=== PATIENT | female | born 1950 ===

== ENCOUNTER 2025-09-19 05:30 | Day surgery (SDC) | payer OTHER ==
[~2025-09-19 05:30] MED LIST: LEVOTHYROXINE25 MCG; ROSUVASTATIN CA20 MG; VALSARTAN80 MG
[2025-09-19] MEDS ORDERED: CEFTRIAXONE SODIUM 1,000 MG VIAL ONE (05:46)
[2025-09-19] MEDS ORDERED: METRONIDAZOLE/SODIUM CHLORIDE 500 MG/100 ML PIGGYBACK IV ONE (05:46)
[2025-09-19] MEDS ORDERED: DIBUCAINE 30 GM TUBE ONE (07:19)
[2025-09-19] MEDS ORDERED: HEMOSTATIC MATRIX 1 KIT KIT TOP ONE (07:19)
[2025-09-19] MEDS ORDERED: BUPIVACAINE HCL/MPF 0.5% 30ML VIAL ONE (07:20)
[2025-09-19] MEDS ORDERED: POVIDONE-IODINE 118 ML BOTT TOP ONE (07:20)
[2025-09-19] MEDS ORDERED: LIDOCAINE HCL 1%/EPINEPHRINE 20ML VIAL IJ ONE (07:20)
== END 2025-09-19 15:40 | disposition home or self-care (01) ==
LOC: CIR.AMB 05:30
PROVIDERS: ATTEND Colon & Rectal Surgery
DX: N81.6 Rectocele (principal)